=== PATIENT | male | born 1970 | race Caucasian/White ===

== ENCOUNTER 2019-03-20 19:00 | Outpatient (CLI) | payer OTHER | END 2019-03-20 19:01 | disposition home or self-care (01) | LOC: SLEEPLAB 19:00 | PROVIDERS: ATTEND Family Medicine | DX: G47.33 Obstructive sleep apnea (adult) (pediatric) (principal); R53.83 Other fatigue; E66.9 Obesity, unspecified; I10 Essential (primary) hypertension; F41.9 Anxiety disorder, unspecified; F32.9 Major depressive disorder, single episode, unspecified | CPT/HCPCS: 95806 ==

== ENCOUNTER 2019-05-02 19:30 | Outpatient (CLI) | payer BC | END 2019-05-02 19:31 | disposition home or self-care (01) | LOC: SLEEPLAB 19:30 | PROVIDERS: ATTEND Family Medicine | DX: G47.33 Obstructive sleep apnea (adult) (pediatric) (principal); R53.83 Other fatigue; E66.9 Obesity, unspecified; F41.9 Anxiety disorder, unspecified; F32.9 Major depressive disorder, single episode, unspecified; I10 Essential (primary) hypertension; Z68.42 Body mass index [BMI] 45.0-49.9, adult | CPT/HCPCS: 95811 ==

== ENCOUNTER 2019-05-06 16:17 | Outpatient (CLI) | payer BC ==
[2019-05-06 17:33] LABS: #Basophils 0.1 thou/uL (0.0-0.2); #Eosinphils 0.1 thou/uL (0.0-0.7); #Lymphocytes 3.1 thou/uL (1.20-3.40); #Monocytes 0.7 thou/uL (0.11-0.59); #Neutrophils 5.1 thou/uL (1.40-6.50); %Basophils 1.3 % (0.0-1.0); %Eosinophils 1.5 % (0.0-10.0); %Lymphocytes 33.6 % (21.0-51.0); %Monocytes 7.4 % (0.0-10.0); %Neutrophils 56.3 % (42.0-75.0); Hemoglobin 15.8 g/dL (14.0-18.0); Mean Corpuscular HGB CONC 32.8 g/dL (32.0-36.0); Mean Corpuscular Hemoglobin 27.5 pg (27.0-31.0); Mean Corpuscular Volume 83.7 fL (78.0-98.0); Mean Platelet Volume 8.7 fL (7.4-10.4); Platelet Count 252 thou/uL (130-400); RBC Distribution Width 11.9 % (11.5-14.5); Red Blood Cell (RBC) Count 5.76 mill/uL (4.70-6.10); White Blood Cell (WBC) Count 9.1 thou/uL (4.8-10.8)
[2019-05-06 18:00] LABS: Anion Gap 15 mmol/L (10-20); BUN (Urea Nitrogen) 19 mg/dL (8.9-20.6); Calc. Creatinine Clearance 0 mL/min (70-130); Calcium 9.8 mg/dL (7.8-10.44); Carbon Dioxide 28 mmol/L (22-29); Chloride 100 mmol/L (98-107); Estimated GFR-MDRD 75; Glucose 90 mg/dL (70-105); Potassium 4.3 mmol/L (3.5-5.1); Sodium 139 mmol/L (136-145)
--- NOTE | 2019-05-12 18:40 | EKG ---
Test Reason : Blood Pressure : / mmHG Vent. Rate : 071 BPM Atrial Rate : 071 BPM P-R Int : 148 ms QRS Dur : 106 ms QT Int : 400 ms P-R-T Axes : 031 -09 022 degrees QTc Int : 434 ms Normal sinus rhythm Normal ECG When compared with ECG of 09-OCT-2014 20:22, No significant change was found Confirmed by DR. Isabel MORRIS MD ([id number]) on 05/12/2019 6:40:06 PM Referred By: ROBB Confirmed By:DR. Isabel MORRIS MD
== END 2019-05-06 16:18 | disposition home or self-care (01) ==
LOC: LABBT 16:17
PROVIDERS: ATTEND Surgery
DX: Z01.818 Encounter for other preprocedural examination (principal); K64.9 Unspecified hemorrhoids
CPT/HCPCS: 80048; 85025; 93005; 93010

== ENCOUNTER 2019-05-07 11:25 | Day surgery (SDC) | payer BC ==
[2019-05-06 16:41] VITALS: BMI 43.0
[2019-05-07] MEDS ORDERED: Bupivacaine 0.25% HCL 30 ML VIAL ONE (11:46)
[2019-05-07] MEDS ORDERED: Lidocaine 2% PF 5 ML VIAL ONE (11:46)
[2019-05-07] MEDS ORDERED: Lidocaine 2% Jelly 5 ML TUBE ONE (11:46)
[2019-05-07] MEDS ORDERED: Lidocaine 0.5%/Epinephrine 1:200,000 50 ml Vial ONE (11:46)
[2019-05-07] MEDS ORDERED: ceFOXitin 2 GM/50 ML Duplex BAG ONE (12:07)
[2019-05-07] MEDS ORDERED: Dexamethasone 20 MG/5 ML VIAL ONE (12:35)
[2019-05-07] MEDS ORDERED: Rocuronium Bromide 10 MG/ML (10ML VIAL) ONE (12:35)
[2019-05-07] MEDS ORDERED: PROPOFOL 200 MG/20 ML VIAL ONE (12:35)
[2019-05-07] MEDS ORDERED: Ketorolac Tromethamine 30 MG/ML VIAL ONE (12:35)
[2019-05-07] MEDS ORDERED: diphenhydrAMINE 50 MG/ML VIAL ONE (12:35)
[2019-05-07] MEDS ORDERED: Ondansetron PF 4 MG/2 ML Vial ONE (12:35)
[2019-05-07] MEDS ORDERED: SUGAMMADEX SODIUM 200 MG/2 ML VIAL ONE (12:51)
[2019-05-07] MEDS ORDERED: Fentanyl 100 MCG/2 ML VIAL ONE (12:51)
[2019-05-07] MEDS ORDERED: SUGAMMADEX SODIUM 500 MG/5 ML VIAL ONE (13:59)
[2019-05-08] MEDS ORDERED: Lidocaine 1% w/Epinephrine 1:100K 20 ML VIAL ONE (06:55)
[2019-05-08] MEDS ORDERED: Bupivacaine 0.25% HCL 30 ML VIAL ONE (06:55)
[2019-05-08] MEDS ORDERED: Lidocaine 2% Jelly 5 ML TUBE ONE (06:56)
--- NOTE | 2019-05-08 10:14 | OP ---
DATE OF PROCEDURE: 05/07/2019 PREOPERATIVE DIAGNOSIS: Internal prolapsing hemorrhoids. POSTOPERATIVE DIAGNOSIS: Internal prolapsing hemorrhoids. PROCEDURE PERFORMED: PPH stapled hemorrhoidectomy. ANESTHESIA: General. ESTIMATED BLOOD LOSS: Minimal. COMPLICATIONS: None. FINDINGS: Prolapsing internal hemorrhoids. DESCRIPTION OF PROCEDURE: He had undergone preop bowel prep. He was taken to the operating room and laid supine on the operating room table. After general anesthetic was obtained, placed in prone reji-knife position, his gluteal cleft was taped open. Digital rectal exam revealed no obvious anal canal mass. The obturator and sphincter protector were placed in usual fashion for the PPH stapled hemorrhoidectomy set. This sphincter protector and obturator were held in place using silk sutures. The SewRight was used to place a pursestring of Prolene suture 2 cm above the dentate line circumferentially. The stapler was opened to its fullest extent and the anvil placed above the pursestring. The pursestring strings were pulled through the stapler and tension was held on these as the stapler was close to the within the green zone. This pulled the prolapsing hemorrhoids up into the stapler. The stapler was tightened into the green zone and fired and a good ring of internal hemorrhoid tissue was obtained. There was one bleeder on the posterior staple line that was oversewn using Vicryl suture. There was no obvious other bleeding. Gelfoam and lidocaine jelly was packed in the anal canal. There was no residual external disease present. The patient was sent to Recovery in stable condition. All instrument counts needle counts, and lap counts were correct. Job ID: [id number]
== END 2019-05-07 16:06 | disposition home or self-care (01) ==
LOC: SDC 11:25
PROVIDERS: ATTEND Surgery
PROC: 06BY3ZC Excision of Hemorrhoidal Plexus, Percutaneous Approach (ICD-10-PCS; principal; 2019-05-07)
DX: K64.8 Other hemorrhoids (principal); I10 Essential (primary) hypertension; G47.00 Insomnia, unspecified; F32.9 Major depressive disorder, single episode, unspecified; Z79.899 Other long term (current) drug therapy; Z88.1 Allergy status to other antibiotic agents; Z88.2 Allergy status to sulfonamides; Z88.8 Allergy status to other drugs, medicaments and biological substances
CPT/HCPCS: 88304; J0694; J1100; J1200; J1885; J2001; J2405; J2704; J3010; S0020

== ENCOUNTER 2019-05-08 07:47 | Observation (INO) | payer BC ==
[2019-05-08] MEDS ORDERED: Midazolam HCl 2 mg/2 ml Vial ONE (08:06)
[2019-05-08] MEDS ORDERED: Fentanyl 100 MCG/2 ML VIAL ONE ×2 (08:06→11:23)
[2019-05-08 08:29] LABS: Hemoglobin 13.1 g/dL (14.0-18.0); Mean Corpuscular HGB CONC 33.7 g/dL (32.0-36.0); Mean Corpuscular Hemoglobin 28.4 pg (27.0-31.0); Mean Corpuscular Volume 84.2 fL (78.0-98.0); Mean Platelet Volume 8.5 fL (7.4-10.4); Platelet Count 358 thou/uL (130-400); RBC Distribution Width 11.9 % (11.5-14.5); Red Blood Cell (RBC) Count 4.63 mill/uL (4.70-6.10); White Blood Cell (WBC) Count 16.2 thou/uL (4.8-10.8)
[2019-05-08 08:47] LABS: Anion Gap 15 mmol/L (10-20); BUN (Urea Nitrogen) 17 mg/dL (8.9-20.6); Calc. Creatinine Clearance 0 mL/min (70-130); Calcium 8.5 mg/dL (7.8-10.44); Carbon Dioxide 21 mmol/L (22-29); Chloride 107 mmol/L (98-107); Estimated GFR-MDRD 87; Glucose 135 mg/dL (70-105); Potassium 3.9 mmol/L (3.5-5.1); Sodium 139 mmol/L (136-145)
[2019-05-08] MEDS ORDERED: Famotidine/PF 20 mg/2ml Vial ONE (09:24)
[2019-05-08] MEDS ORDERED: SUGAMMADEX SODIUM 500 MG/5 ML VIAL ONE (09:25)
[2019-05-08] MEDS ORDERED: Rocuronium Bromide 10 MG/ML (10ML VIAL) ONE (10:16)
[2019-05-08] MEDS ORDERED: Ondansetron PF 4 MG/2 ML Vial ONE (10:16)
[2019-05-08] MEDS ORDERED: Succinylcholine Chloride 20 MG/ML 10 ml SYRINGE FS ONE (10:16)
[2019-05-08] MEDS ORDERED: Lidocaine 1% PF 5 ML VIAL ONE (10:16)
[2019-05-08] MEDS ORDERED: PROPOFOL 200 MG/20 ML VIAL ONE (10:16)
[2019-05-08] MEDS ORDERED: Dexamethasone 20 MG/5 ML VIAL ONE (10:16)
[2019-05-08] MEDS ORDERED: Glycopyrrolate 0.2 MG/ML 5 ML SYRINGE ONE (10:16)
[2019-05-08] MEDS ORDERED: HYDROcodone/Acetaminophen 5/325 mg Tablet ONE (12:20)
--- NOTE | 2019-05-08 14:24 | OP ---
DATE OF PROCEDURE: 05/08/2019 PREOPERATIVE DIAGNOSIS: Bleeding postop day #1, stapled hemorrhoidectomy. POSTOPERATIVE DIAGNOSIS: Bleeding postop day #1, stapled hemorrhoidectomy. PROCEDURE PERFORMED: Exam under anesthesia, over-sew of PPH staple line. ANESTHESIA: General. ESTIMATED BLOOD LOSS: 100 mL of old blood. COMPLICATIONS: None. FINDINGS: There was bleeding on the anterolateral staple line. DESCRIPTION OF PROCEDURE: The patient was taken to the operating room and laid supine on the operating room table. After general anesthetic was obtained, he was placed in the prone position. His buttock crease was taped open. His perianal areas were prepped and draped in a sterile fashion. Exam using the Hill-Turner retractor reveals significant amount of old blood in his rectal vault. This was all evacuated. There was subtle bleeding on the anterolateral staple line on each side. This was oversewn using multiple 3-0 Vicryl. The lateral aspect of the staple line was oversewn on each side. There was no posterior bleeding. The rectal vault was irrigated until returns were more clear, and all old blood was evacuated out. There was no ongoing bleeding. The patient was en route to Recovery in stable condition. All instrument counts, needle counts, and lap counts were correct. Job ID: [id number]
[2019-05-08] MEDS ORDERED: Morphine 4 MG/ML VIAL SLOW IVP PRN (15:42)
[2019-05-08] MEDS ORDERED: Promethazine HCl 25 MG/ML VIAL IM PRN (15:42)
[2019-05-08] MEDS ORDERED: Dextrose 5% in Water 1,000 ML IV PRN (15:42)
[2019-05-08] MEDS ORDERED: Ondansetron PF 4 MG/2 ML Vial IVP PRN (15:42)
[2019-05-08] MEDS ORDERED: hydrALAZINE 20 MG/ML VIAL SLOW IVP PRN (15:42)
[2019-05-08] MEDS ORDERED: Morphine 2 MG/ML SYRINGE SLOW IVP PRN (15:42)
[2019-05-08] MEDS ORDERED: Dextrose 50% Abboject 50 ML SYRINGE SLOW IVP PRN (15:42)
[2019-05-08] MEDS ORDERED: traMADol HCl 50 MG TAB PO PRN (15:42)
[2019-05-08 15:52] VITALS: BMI 43.0
[2019-05-08] MEDS: Famotidine 20 MG TAB PO SCH (19:41)
[2019-05-08] MEDS: Famotidine/PF 20 mg/2ml Vial SLOW IVP SCH (19:46)
[2019-05-08] MEDS: HYDROcodone/Acetaminophen 7.5/325 mg Tablet PO PRN (21:23)
[2019-05-09 05:43] LABS: Anion Gap 10 mmol/L (10-20); BUN (Urea Nitrogen) 12 mg/dL (8.9-20.6); Calc. Creatinine Clearance 195 mL/min (70-130); Calcium 8.1 mg/dL (7.8-10.44); Carbon Dioxide 28 mmol/L (22-29); Chloride 104 mmol/L (98-107); Estimated GFR-MDRD Greater than 90; Glucose 106 mg/dL (70-105); Potassium 4.2 mmol/L (3.5-5.1); Sodium 138 mmol/L (136-145)
[2019-05-09 05:46] LABS: #Lymphocytes 2.6 thou/uL (1.20-3.40); #Monocytes 0.7 thou/uL (0.11-0.59); %Basophils 0.1 % (0.0-1.0); %Eosinophils 0.2 % (0.0-10.0); %Lymphocytes 31.2 % (21.0-51.0); %Monocytes 8.2 % (0.0-10.0); %Neutrophils 60.4 % (42.0-75.0); Hypochromia SLIGHT = 6-15 cells (100X) (0-5/hpf); Lymphocytes 22 % (21-51); MDiff Complete? YES; Mean Corpuscular HGB CONC 33.6 g/dL (32.0-36.0); Mean Corpuscular Hemoglobin 28.2 pg (27.0-31.0); Mean Corpuscular Volume 83.9 fL (78.0-98.0); Mean Platelet Volume 8.7 fL (7.4-10.4); Monocytes 8 % (0-10); Neutrophil 70 % (42-75); Platelet Count 175 thou/uL (130-400); Platelet Morphology Comment Appears Adequate; RBC Distribution Width 11.8 % (11.5-14.5); Red Blood Cell (RBC) Count 3.18 mill/uL (4.70-6.10); White Blood Cell (WBC) Count 8.3 thou/uL (4.8-10.8)
[2019-05-09] MEDS ORDERED: Non-Formulary Item 1 EACH (Atenolol/Chlorthalidone [Atenolol-Chlorthalidone 50-25] 1 EACH PO SCH (09:00)
[2019-05-09] MEDS ORDERED: Citalopram 20 MG TAB PO SCH (09:00)
[2019-05-09] MEDS ORDERED: Atenolol 50 MG TAB PO SCH (09:00)
[2019-05-09] MEDS ORDERED: Chlorthalidone 25 MG TAB PO SCH (09:00)
[2019-05-09] MEDS: Famotidine 20 MG TAB PO SCH (09:02)
[2019-05-09] MEDS: HYDROcodone/Acetaminophen 7.5/325 mg Tablet PO PRN (09:02)
[2019-05-09] MEDS: Famotidine/PF 20 mg/2ml Vial SLOW IVP SCH (09:05)
[2019-05-09 15:11] VITALS: BP 109/68; TEMP 98.9
== END 2019-05-09 16:35 | disposition home or self-care (01) ==
LOC: SDC 07:47 → SURG A 15:30 → SDC 15:50 → SURG A 15:51
PROVIDERS: ADMIT Surgery; ATTEND Surgery
PROC: 0DQQXZZ Repair Anus, External Approach (ICD-10-PCS; principal; 2019-05-08)
DX: K91.840 Postprocedural hemorrhage of a digestive system organ or structure following a digestive system procedure (principal); Y83.8 Other surgical procedures as the cause of abnormal reaction of the patient, or of later complication, without mention of misadventure at the time of the procedure; Z79.899 Other long term (current) drug therapy; Z88.1 Allergy status to other antibiotic agents; Z88.2 Allergy status to sulfonamides; Z88.8 Allergy status to other drugs, medicaments and biological substances
CPT/HCPCS: 36415; 80048; 85025; 85027; G0378; J1100; J2001; J2250; J2405; J2704; J3010; S0028

== ENCOUNTER 2019-12-16 14:25 | Outpatient (CLI) | payer BC | END 2019-12-16 14:26 | disposition home or self-care (01) | LOC: ULT 14:25 | PROVIDERS: ATTEND Family Medicine | DX: R60.0 Localized edema (principal); I07.1 Rheumatic tricuspid insufficiency | CPT/HCPCS: 93306 ==

== ENCOUNTER 2020-04-08 17:49 | Emergency (ER) | payer BC ==
[2020-04-08] MEDS ORDERED: Ibuprofen 200 MG TAB ONE ×2 (18:33→18:36)
[2020-04-08] MEDS ORDERED: Acetaminophen 500 MG TAB ONE (18:33)
[2020-04-08 18:43] LABS: Mean Corpuscular HGB CONC 35.4 g/dL (32.0-36.0); Mean Corpuscular Hemoglobin 29.4 pg (27.0-31.0); Mean Corpuscular Volume 82.8 fL (78.0-98.0); Mean Platelet Volume 8.9 fL (7.4-10.4); Platelet Count 142 thou/uL (130-400); RBC Distribution Width 12.4 % (11.5-14.5); Red Blood Cell (RBC) Count 5.46 mill/uL (4.70-6.10); White Blood Cell (WBC) Count 8.2 thou/uL (4.8-10.8)
[2020-04-08 18:44] LABS: #Lymphocytes 1.7 thou/uL (1.20-3.40); #Monocytes 0.8 thou/uL (0.11-0.59); #Neutrophils 5.7 thou/uL (1.40-6.50); %Basophils 0.3 % (0.0-1.0); %Eosinophils 0.5 % (0.0-10.0); %Lymphocytes 20.7 % (21.0-51.0); %Monocytes 9.7 % (0.0-10.0); %Neutrophils 68.9 % (42.0-75.0)
--- NOTE | 2020-04-08 18:56 | RAD ---
CHEST ONE VIEW: 04/08/20 INDICATION: COVID positive with increase in cough, fever and weakness. COMPARISON: Prior exam dated 10/09/14. FINDINGS: No definite consolidation, pleural effusion or pneumothorax evident. Respiratory motion artifact slig htly limits image detail. No definite acute osseous abnormality is evident. IMPRESSION: No definite acute abnormality within the limitation of the exam. POS: BH
[2020-04-08 18:59] LABS: ALT (SGPT) 54 U/L (8-55); AST (SGOT) 50 U/L (5-34); Albumin 4.4 g/dL (3.5-5.0); Alkaline Phosphatase 45 U/L (40-110); Anion Gap 21 mmol/L (10-20); BUN (Urea Nitrogen) 23 mg/dL (8.9-20.6); Bilirubin, Total 1.2 mg/dL (0.2-1.2); Calc. Creatinine Clearance 0 mL/min (70-130); Calcium 8.7 mg/dL (7.8-10.44); Carbon Dioxide 24 mmol/L (22-29); Chloride 95 mmol/L (98-107); Glucose 100 mg/dL (70-105); Potassium 3.8 mmol/L (3.5-5.1); Protein, Total 7.4 g/dL (6.0-8.3); Sodium 136 mmol/L (136-145)
[2020-04-08 19:02] LABS: Large Platelets SLIGHT; MDiff Complete? YES; Platelet Morphology Comment Appears Adequate; RBC Morphology Normal
== END 2020-04-08 19:34 | disposition home or self-care (01) ==
LOC: ERS 17:49
DX: U07.1 COVID-19 (principal); I10 Essential (primary) hypertension; Z79.899 Other long term (current) drug therapy
CPT/HCPCS: 36415; 71045; 80053; 83880; 84484; 85025; 93005

== ENCOUNTER 2020-05-17 18:03 | Outpatient (CLI) | payer BC ==
--- NOTE | 2020-05-17 18:17 | RAD ---
Exam: XR Ankle Rt 3 View STANDARD HISTORY: Acute right ankle pain with swelling. COMPARISON: None FINDINGS: There is a lucency seen involving the most medial aspect of the medial malleolus which is thought to be projectional. This is not thought to represent an avulsion fracture. No adjacent soft tissue swelling is seen. No other fracture seen, and there is no evidence of a dislocation. No other osseous abnormality. IMPRESSION: No acute osseous abnormality is identified.
== END 2020-05-17 18:04 | disposition home or self-care (01) ==
LOC: SCSRAD 18:03
PROVIDERS: ATTEND Family Medicine
DX: M25.571 Pain in right ankle and joints of right foot (principal)

== ENCOUNTER 2020-05-28 16:53 | Outpatient (CLI) | payer BC | END 2020-05-28 16:54 | disposition home or self-care (01) | LOC: SCSRAD 16:53 | PROVIDERS: ATTEND Family Medicine | DX: M25.511 Pain in right shoulder (principal) ==

== ENCOUNTER 2020-08-10 15:59 | Outpatient (CLI) | payer BC ==
[2020-08-10 17:52] LABS: #Basophils 0.1 10x3/uL (0.0-0.2); #Eosinphils 0.1 10x3/uL (0.0-0.5); #Neutrophils 4.5 10x3/uL (1.5-8.4); %Basophils 0.6 % (0.0-2.0); %Eosinophils 1.3 % (0.0-6.0); %Lymphocytes 34.4 % (18.0-47.0); %Monocytes 11.5 % (0.0-10.0); %Neutrophils 51.9 % (40.0-75.0); Hemoglobin 14.9 g/dL (13.5-17.5); Mean Corpuscular HGB CONC 33.9 g/dL (32.0-36.0); Mean Corpuscular Hemoglobin 26.7 pg (27.0-33.0); Mean Corpuscular Volume 78.9 fl (81.2-95.1); Mean Platelet Volume 10.4 fl (7.4-10.4); Platelet Count 309 10x3/uL (150-450); RBC Distribution Width 12.4 % (11.5-14.5); Red Blood Cell (RBC) Count 5.58 10x6/uL (4.32-5.72); White Blood Cell (WBC) Count 8.6 10x3/uL (3.5-10.5)
[2020-08-10 18:00] LABS: Anion Gap 17 mmol/L (10-20); BUN (Urea Nitrogen) 20 mg/dL (8.9-20.6); Calc. Creatinine Clearance 0 mL/min (70-130); Carbon Dioxide 24 mmol/L (22-29); Chloride 98 mmol/L (98-107); Potassium 3.4 mmol/L (3.5-5.1); Sodium 136 mmol/L (136-145)
[2020-08-10 18:01] LABS: Calcium 8.8 mg/dL (7.8-10.44); Glucose 73 mg/dL (70-105)
[2020-08-11 07:38] LABS: SARS-CoV-2 PCR by NAA Not Detected (NotDetected)
== END 2020-08-10 16:00 | disposition home or self-care (01) ==
LOC: LABBT 15:59
PROVIDERS: ATTEND Orthopaedic Surgery
DX: Z01.818 Encounter for other preprocedural examination (principal); Z20.822 Contact with and (suspected) exposure to COVID-19; S46.011A Strain of muscle(s) and tendon(s) of the rotator cuff of right shoulder, initial encounter
CPT/HCPCS: 80048; 85025; 87635; 93005; 93010; U0003; U0005

== ENCOUNTER 2020-08-13 07:33 | Day surgery (SDC) | payer BC ==
[2020-08-12 13:32] VITALS: BMI 45.1
[2020-08-13] MEDS ORDERED: HYDROcodone/Acetaminophen 10/325 mg Tablet PO PRN (07:57)
[2020-08-13] MEDS ORDERED: Midazolam HCl 2 mg/2 ml Vial ONE (08:20)
[2020-08-13] MEDS ORDERED: Fentanyl 100 MCG/2 ML VIAL ONE ×3 (08:20→09:50)
[2020-08-13] MEDS ORDERED: Fentanyl 100 MCG/2 ML VIAL IV PRN (08:54)
[2020-08-13] MEDS ORDERED: traMADol HCl 50 MG TAB PO PRN ×2 (09:00)
[2020-08-13] MEDS ORDERED: Ondansetron PF 4 MG/2 ML Vial IVP PRN (09:00)
[2020-08-13] MEDS ORDERED: HYDROcodone/Acetaminophen 5/325 mg Tablet PO PRN ×2 (09:00)
[2020-08-13] MEDS ORDERED: Ropivacaine 0.2% 550 ML 550 ML NERVE BLCK SCH (09:00)
[2020-08-13] MEDS ORDERED: Zolpidem Tartrate 5 MG TAB PO PRN (09:00)
[2020-08-13] MEDS ORDERED: Promethazine HCl 25 MG/ML VIAL IM PRN (09:00)
[2020-08-13] MEDS ORDERED: Lidocaine 1% PF 5 ML VIAL ONE (09:42)
[2020-08-13] MEDS ORDERED: Ropivacaine 2% HCl/PF (20 MG/10 ML VIAL) ONE (09:42)
[2020-08-13] MEDS ORDERED: Succinylcholine 200 MG/10 ml SYRINGE FS ONE (09:42)
[2020-08-13] MEDS ORDERED: PROPOFOL 200 MG/20 ML VIAL ONE (09:42)
[2020-08-13] MEDS ORDERED: Ondansetron PF 4 MG/2 ML Vial ONE (09:42)
[2020-08-13] MEDS ORDERED: Metoclopramide HCl 10 MG/2 ML VIAL ONE (09:42)
[2020-08-13] MEDS ORDERED: Ropivacaine 0.5% HCl/PF (150 MG/30 ML VIAL) ONE (09:42)
[2020-08-13] MEDS ORDERED: Rocuronium Bromide 10 MG/ML (10ML VIAL) ONE (09:42)
[2020-08-13] MEDS ORDERED: Ketorolac Tromethamine 30 MG/ML VIAL ONE (09:42)
[2020-08-13] MEDS ORDERED: SUGAMMADEX SODIUM 200 MG/2 ML VIAL ONE (11:15)
[2020-08-13] MEDS ORDERED: Ketorolac Tromethamine 30 MG/ML VIAL IVP SCH ×2 (12:00)
== END 2020-08-13 14:00 | disposition home or self-care (01) ==
LOC: SDC 07:33
PROVIDERS: ATTEND Orthopaedic Surgery
PROC: 3E0T3BZ Introduction of Anesthetic Agent into Peripheral Nerves and Plexi, Percutaneous Approach (ICD-10-PCS; principal; 2020-08-13)
PROC: 0LQ10ZZ Repair Right Shoulder Tendon, Open Approach (ICD-10-PCS; principal; 2020-08-13)
DX: M75.111 Incomplete rotator cuff tear or rupture of right shoulder, not specified as traumatic (principal); M24.411 Recurrent dislocation, right shoulder; G89.18 Other acute postprocedural pain; I10 Essential (primary) hypertension; Z79.899 Other long term (current) drug therapy; Z88.1 Allergy status to other antibiotic agents; Z88.2 Allergy status to sulfonamides
CPT/HCPCS: A4306; C1713; J0690; J1885; J2250; J2405; J2704; J2765; J2795; J3010

== ENCOUNTER 2021-01-31 14:15 | Inpatient (IN) | payer BC, OTHER ==
[~2021-01-31 14:15] MED LIST: Iopamidol-370 76% 500 ML 1 ML ONE
[2021-01-31 15:57] LABS: #Basophils 0.1 thou/uL (0.0-0.2); #Eosinphils 0.1 thou/uL (0.0-0.7); #Lymphocytes 2.2 thou/uL (1.20-3.40); #Monocytes 0.6 thou/uL (0.11-0.59); %Basophils 0.7 % (0.0-1.0); %Eosinophils 1.3 % (0.0-10.0); %Lymphocytes 20.3 % (21.0-51.0); %Monocytes 5.5 % (0.0-10.0); %Neutrophils 72.3 % (42.0-75.0); Hemoglobin 16.7 g/dL (14.0-18.0); Mean Corpuscular HGB CONC 33.8 g/dL (32.0-36.0); Mean Corpuscular Hemoglobin 28.2 pg (27.0-31.0); Mean Corpuscular Volume 83.4 fL (78.0-98.0); Mean Platelet Volume 8.4 fL (7.4-10.4); Platelet Count 283 thou/uL (130-400); RBC Distribution Width 12.2 % (11.5-14.5); Red Blood Cell (RBC) Count 5.94 mill/uL (4.70-6.10); White Blood Cell (WBC) Count 11.1 thou/uL (4.8-10.8)
[2021-01-31 17:05] LABS: ALT (SGPT) 34 U/L (8-55); AST (SGOT) 28 U/L (5-34); Albumin 4.5 g/dL (3.5-5.0); Alkaline Phosphatase 67 U/L (40-110); Anion Gap 18 mmol/L (10-20); BUN (Urea Nitrogen) 20 mg/dL (8.9-20.6); Bilirubin, Total 0.9 mg/dL (0.2-1.2); Calc. Creatinine Clearance 0 mL/min (70-130); Calcium 10.1 mg/dL (7.8-10.44); Carbon Dioxide 23 mmol/L (22-29); Chloride 101 mmol/L (98-107); Globulin 3.3 g/dL (2.4-3.5); Glucose 129 mg/dL (70-105); Potassium 4.7 mmol/L (3.5-5.1); Protein, Total 7.8 g/dL (6.0-8.3); Sodium 137 mmol/L (136-145)
[2021-01-31] MEDS ORDERED: Aspirin Chewable 81 MG TAB ONE (18:13)
[2021-01-31] MEDS ORDERED: HYDROcodone/Acetaminophen 7.5/325 mg Tablet PO PRN (18:47)
[2021-01-31] MEDS ORDERED: Bisacodyl 5 MG TAB PO PRN (18:47)
[2021-01-31] MEDS ORDERED: HYDROcodone/Acetaminophen 5/325 mg Tablet PO PRN (18:47)
[2021-01-31] MEDS ORDERED: Acetaminophen 325 MG TAB PO PRN (18:47)
[2021-01-31] MEDS ORDERED: Ondansetron PF 4 MG/2 ML Vial IVP PRN (18:47)
[2021-01-31] MEDS ORDERED: Senokot S 8.6-50 MG TAB PO PRN (18:47)
[2021-01-31] MEDS ORDERED: hydrALAZINE 20 MG/ML VIAL SLOW IVP PRN (18:53)
[2021-01-31] MEDS ORDERED: Melatonin 3 MG TAB PO PRN (18:53)
[2021-01-31 19:26] LABS: Troponin I Less than 0.010 ng/mL (< 0.028)
[2021-01-31] MEDS: Famotidine/PF 20 mg/2ml Vial SLOW IVP SCH (23:05)
[2021-01-31 23:44] LABS: Troponin I Less than 0.010 ng/mL (< 0.028)
[2021-02-01 00:36] VITALS: BMI 43.8
[2021-02-01] MEDS ORDERED: Bupropion 150 MG XL TAB PO SCH (01:00)
[2021-02-01 06:40] LABS: #Eosinphils 0.2 thou/uL (0.0-0.7); #Lymphocytes 3.2 thou/uL (1.20-3.40); #Monocytes 0.8 thou/uL (0.11-0.59); %Basophils 0.5 % (0.0-1.0); %Eosinophils 2.3 % (0.0-10.0); %Lymphocytes 30.9 % (21.0-51.0); %Monocytes 8.1 % (0.0-10.0); %Neutrophils 58.2 % (42.0-75.0); Hemoglobin 15.6 g/dL (14.0-18.0); Mean Corpuscular HGB CONC 35.1 g/dL (32.0-36.0); Mean Corpuscular Hemoglobin 29.1 pg (27.0-31.0); Mean Corpuscular Volume 82.9 fL (78.0-98.0); Mean Platelet Volume 8.5 fL (7.4-10.4); Platelet Count 243 thou/uL (130-400); RBC Distribution Width 12.1 % (11.5-14.5); Red Blood Cell (RBC) Count 5.37 mill/uL (4.70-6.10); White Blood Cell (WBC) Count 10.3 thou/uL (4.8-10.8)
[2021-02-01 06:43] LABS: Hemoglobin A1c 5.6 % (4.0-6.0)
[2021-02-01 07:01] LABS: ALT (SGPT) 29 U/L (8-55); AST (SGOT) 23 U/L (5-34); Alkaline Phosphatase 59 U/L (40-110); Anion Gap 17 mmol/L (10-20); BUN (Urea Nitrogen) 21 mg/dL (8.9-20.6); Bilirubin, Total 1.4 mg/dL (0.2-1.2); Calc. Creatinine Clearance 146 mL/min (70-130); Calcium 9.5 mg/dL (7.8-10.44); Carbon Dioxide 29 mmol/L (22-29); Chloride 100 mmol/L (98-107); Cholesterol 181 mg/dl (< 200 Desired); Globulin 2.7 g/dL (2.4-3.5); Glucose 103 mg/dL (70-105); HDL Cholesterol 36 mg/dL (>60 Neg Risk); LDL Cholesterol, Calculated 128 mg/dL; Potassium 4.9 mmol/L (3.5-5.1); Protein, Total 6.7 g/dL (6.0-8.3); Sodium 141 mmol/L (136-145); Triglycerides 85 mg/dL (Less than 150)
[2021-02-01] MEDS: Bupropion 150 MG XL TAB PO SCH ×2 (08:23→20:23)
[2021-02-01] MEDS: Famotidine/PF 20 mg/2ml Vial SLOW IVP SCH ×2 (08:23→20:23)
[2021-02-01] MEDS: Citalopram 20 MG TAB PO SCH (08:23)
[2021-02-01] MEDS ORDERED: Aspirin Chewable 81 MG TAB PO SCH ×2 (11:00→11:15)
[2021-02-01 12:39] LABS: SARS-CoV-2 PCR by NAA Not Detected (NotDetected)
[2021-02-01] MEDS ORDERED: Carvedilol 6.25 MG TAB PO SCH (17:00)
[2021-02-01] MEDS ORDERED: Atorvastatin Calcium 40 MG TAB PO SCH (21:00)
[2021-02-02] MEDS ORDERED: hydrALAZINE 25 MG TAB PO PRN (07:58)
[2021-02-02 08:02] LABS: ALT (SGPT) 29 U/L (8-55); AST (SGOT) 21 U/L (5-34); Albumin 4.1 g/dL (3.5-5.0); Alkaline Phosphatase 63 U/L (40-110); Anion Gap 12 mmol/L (10-20); BUN (Urea Nitrogen) 19 mg/dL (8.9-20.6); Bilirubin, Total 1.7 mg/dL (0.2-1.2); Calc. Creatinine Clearance 148 mL/min (70-130); Calcium 9.4 mg/dL (7.8-10.44); Carbon Dioxide 30 mmol/L (22-29); Chloride 100 mmol/L (98-107); Globulin 2.8 g/dL (2.4-3.5); Glucose 107 mg/dL (70-105); Potassium 4.3 mmol/L (3.5-5.1); Protein, Total 6.9 g/dL (6.0-8.3); Sodium 138 mmol/L (136-145)
[2021-02-02] MEDS ORDERED: Carvedilol 6.25 MG TAB PO SCH ×2 (08:15→17:00)
[2021-02-02] MEDS: Citalopram 20 MG TAB PO SCH (08:35)
[2021-02-02] MEDS: Bupropion 150 MG XL TAB PO SCH (08:36)
[2021-02-02] MEDS: Famotidine/PF 20 mg/2ml Vial SLOW IVP SCH (08:36)
[2021-02-02] MEDS ORDERED: Lisinopril 20 MG TAB PO SCH (09:00)
[2021-02-02] MEDS ORDERED: Aspirin Chewable 81 MG TAB PO SCH (09:00)
[2021-02-02] MEDS ORDERED: Aspirin 81 mg Enteric Coated Tablet PO SCH (09:00)
[2021-02-02] MEDS ORDERED: Amlodipine 5 MG TAB PO SCH (12:45)
[2021-02-02 15:43] VITALS: BP 129/70; TEMP 98.1
[2021-02-03] MEDS ORDERED: Amlodipine 5 MG TAB PO SCH (09:00)
[2021-02-03] MEDS ORDERED: FLU VACC QS2021-22(6MOS UP)/PF 60 MCG/0.5 ML SYRINGE IM ONE (09:00)
[2021-02-03] MEDS ORDERED: Lisinopril/Hydrochlorothiazide 20/25 mg Tablet PO SCH (09:00)
== END 2021-02-02 18:40 | disposition home or self-care (01) | DRG 69 ==
LOC: ERS 14:15 → 2SW 18:15 → OBSVTOIN 02-02 08:41
PROVIDERS: ADMIT Internal Medicine; ATTEND Internal Medicine Geriatric Medicine
DX: G45.9 Transient cerebral ischemic attack, unspecified (principal); Z68.41 Body mass index [BMI] 40.0-44.9, adult; G81.91 Hemiplegia, unspecified affecting right dominant side; Z20.822 Contact with and (suspected) exposure to COVID-19; F32.A Depression, unspecified; F41.9 Anxiety disorder, unspecified; I10 Essential (primary) hypertension; R73.03 Prediabetes; E66.01 Morbid (severe) obesity due to excess calories; G47.33 Obstructive sleep apnea (adult) (pediatric); Z88.2 Allergy status to sulfonamides; Z88.1 Allergy status to other antibiotic agents; Z79.899 Other long term (current) drug therapy; Z98.1 Arthrodesis status
CPT/HCPCS: 36415; 36416; 70450; 70496; 70498; 70551; 71045; 80053; 80061; 83036; 83880; 84484; 85025; 93005; 93306; 96374; 96376; G0378; J0360; J2405; Q9967; S0028; U0003; U0005